=== PATIENT | female | born 1990 | race Two or more races ===

== ENCOUNTER 2016-07-11 21:45 | Emergency (ER) | payer OTHER ==
--- NOTE | ~2016-07-11 | CT71 ---
[facility] A Service of [facility] RADIOLOGY TEXT RESULTS PATIENT: MULU BLACKWOOD LOCATION: JEANNA : [birth year] UNIT #: [id number] AGE: [address]: Jeovanny Moy MD SEX: F ORDER DR: [id number] [facility] [address] [place], [place] [address] [id number] MR#: [id number] Acc #: [id number] NAME: MULU BLACKWOOD : 1990 SEX: F STUDY DATE/TIME: 07/12/2016 12:00 UNIT: JEANNA ROOM: STUDY DESCRIPTION: CT Head Wo Contrast Attending Physician: Milton Moy M.D. Ordering Physician: Milton Moy M.D. Primary Care Physician: No Primary Care Physician MEDICAL IMAGING REPORT This report is preliminary unless electronic signature is present EXAM Head CT, 07/11 at 2338. INDICATION Headache and dizziness today with nausea. Headache is predominately left frontal. Pain currently rates 10/10. TECHNIQUE Axial noncontrast images were obtained from the skull base to the vertex. This CT exam was performed with one or more of the following radiation dose reduction techniques: automatic exposure control, adjustment of mA and/or kV according to patient size, and iterative reconstruction. FINDINGS Ventricular size and configuration are normal. There is no evidence of acute infarct or hemorrhage. There are no extra-axial fluid collections. No mass lesion or mass effect is seen. There are no skull fractures. IMPRESSION Normal noncontrast head CT. Dictated by... Darryn Coronado Jr., M.D. THIS IS AN ELECTRONICALLY VERIFIED REPORT Darryn Coronado Jr., M.D. at 07/12/2016 9:24 PM JOHNNIEK/[place] TD: 07/12/2016 09:16 JOB #: [id number] [facility] A Service of [facility] RADIOLOGY TEXT RESULTS PATIENT: MULU BLACKWOOD LOCATION: JEANNA : [birth year] UNIT #: [id number] AGE: [address]: Jeovanny Moy MD SEX: F ORDER DR: MEDICAL IMAGING REPORT Page 1 of 1 COPY
== END 2016-07-12 00:53 | disposition home or self-care (01) ==
LOC: CED 21:45
DX: R51 Headache (principal)
CPT/HCPCS: 70450; 84703; 96361; 96365; 96375; 99284; J1885; J2550